=== PATIENT | male | born 1955 | race Caucasian/White ===

== ENCOUNTER → 2018-01-03 | Day surgery (SDC) | payer OTHER ==
[~2018-01-03] MED LIST: BUPIVACAINE/EPINEPHRINE 0.5% PF 10 ML VIAL ONE; LACTATED RINGER'S 1000 ML INJ 1,000 ML ONE; MIDAZOLAM HCL 2 MG/2 ML VIAL ONE; ONDANSETRON HCL 4 MG/2 ML VIAL IV PUSH ONE; PROPOFOL 200 MG/20 ML AMP IV ONE; ceFAZolin 1 GM PREMIX 100 ML ONE
--- NOTE | 2018-01-04 10:16 | MP ---
cc: Riky Funes MD DATE OF OPERATION: 01/03/2018 PREOPERATIVE DIAGNOSIS: Sebaceous cyst x 5; 3 on neck, 2 on back. POSTOPERATIVE DIAGNOSIS: Sebaceous cyst x 5; 3 on neck, 2 on back. PROCEDURES PERFORMED: Excision of sebaceous cyst: 1. Left posterior back. 2. Right posterior back, 0.5 cm. 3. Center of back, 1 cm. 4. Posterior neck, 0.5 cm. 5. Left neck, 0.5 cm. SURGEON: iRky Funes MD TUBULAR RIVETER: . ANESTHESIA: GETA. INTRAVENOUS FLUIDS: See anesthesia sheet. ESTIMATED BLOOD LOSS: 5 mL. DRAINS: None. COMPLICATIONS: None. WOUND CLASSIFICATION: Clean. SPECIMENS: 1. Sebaceous cyst, left posterior back, 1 cm. 2. Sebaceous cyst, right posterior back, 0.5 cm. 3. Sebaceous cyst, central posterior neck, 1 cm. 4. Sebaceous cyst, left posterior neck mass, 0.5 cm. 5. Sebaceous cyst, left neck, 0.5 cm. COMPLICATIONS: None. DRAINS: None. WOUND CLASSIFICATION: Clean. INDICATIONS FOR PROCEDURE: The patient is a 62-year-old male who presents with chronic-appearing masses on posterior neck and back, consistent with history of sebaceous cyst and the patient re-presents with multiple cyst-like structures. Therefore, decision was made for operative intervention. DETAILS OF PROCEDURE: The patient was taken to the operative suite, placed in the prone position, was prepped and draped in usual sterile fashion, after general endotracheal anesthesia. A timeout was done, stating correct patient, procedure, surgical site, were all in agreement with this. Attention first directed to the left posterior back, where a 1 cm cyst was palpated. A horizontal linear incision was made with a 15 blade. Further dissection with Bovie electrocautery and hemostat to completely excise the capsule on the sebaceous cyst. This was sent for pathology. Hemostasis obtained. Next, attention directed to the right posterior back, where 0.5 cm sebaceous cyst was removed. Again, local anesthetic injected. A 15 mm blade was used to make incision and dissection with hemostats and Bovie electrocautery to remove the cyst as well, sent for pathology. Hemostasis was obtained. Next, attention directed to the central posterior neck where a 1 cm lesion was removed. Again, horizontal incision made. Further dissection with Bovie electrocautery. The capsule was excised and sent for pathology. Next, a left posterior neck 0.5 cm lesion was also removed. Again doing the horizontal incision. Bovie electrocautery dissection to send this for path and then finally sebaceous cyst to the left neck, 0.5 cm, small linear incision was made with a 15 blade. Bovie electrocautery used for further dissection and hemostatic as well. This also sent for pathology. All wounds irrigated. Hemostasis obtained to all wounds. A 3-0 Vicryl placed for deep suture and then 4-0 nylons interrupted sutures were placed as well. Sterile dressings were placed. The patient tolerated the procedure well. No intraoperative complications. All lap and instrument counts were correct at the end of the procedure. The patient was extubated and taken stable to the PACU. MD MAYNOR Dodd/AIMEE/ , 09:18 PM , 10:00 PM
== END | disposition home or self-care (01) ==
LOC: ESDC 12:59
PROVIDERS: ATTEND Surgery
DX: L72.3 Sebaceous cyst (principal)
CPT/HCPCS: 00300; 11400; 11401; 11420; 88304; J0690; J2250; J2405; J3010; J7120